=== PATIENT | female | born 2000 | race Caucasian/White ===

== ENCOUNTER 2018-07-24 06:07 | Emergency (ER) | payer MEDICAID ==
[~2018-07-24] VITALS: Ht 160 cm; Wt 50.0 kg
[2018-07-24 06:12] VITALS: Ht 160 cm; Wt 50.0 kg
[2018-07-24] MEDS ORDERED: BENADRYL25 MG (06:13)
[2018-07-24] MEDS ORDERED: PERMETHRIN60 GM TOPICAL (06:29)
[2018-07-24 06:38] VITALS: BP 127/86
== END 2018-07-24 06:39 | disposition home or self-care (01) ==
LOC: D.ER 06:07
DX: L29.9 Pruritus, unspecified (principal)

== ENCOUNTER 2018-10-09 15:42 | Emergency (ER) | payer MEDICAID ==
[~2018-10-09] VITALS: Ht 162.6 cm; Wt 52.2 kg
[~2018-10-09 15:42] MED LIST: BENADRYL25 MG; PERMETHRIN60 GM TOPICAL
[2018-10-09 15:47] VITALS: Ht 162.6 cm; Wt 52.2 kg
[2018-10-09 16:10] LABS: APPEARANCE HAZY (CLEAR); BACTERIA MODERATE /hpf (NONE SEEN); BILIRUBIN NEGATIVE (NEGATIVE); COLOR YELLOW (YELLOW); EPITHELIAL CELLS >50 /hpf (0-5); GLUCOSE NEGATIVE (NEGATIVE); KETONE NEGATIVE (NEGATIVE); NITRITE POSITIVE (NEGATIVE); PROTEIN NEGATIVE (NEGATIVE); RED CELLS - URINE NONE SEEN /hpf (0-5); UROBILINOGEN NORMAL (NORMAL); WHITE CELLS - URINE 0-5 /hpf (0-5)
[2018-10-09 16:23] LABS: BASOPHILS 0.3 % (0-2); EOSINOPHILS 1.4 % (0-7); HEMATOCRIT 36.5 % (36.0-48.0); HEMOGLOBIN 12.9 g/dL (12-16); IMMATURE GRANULOCYTES 0.2 % (0-5); LYMPHOCYTES 23.7 % (15-50); MCH 32.9 pg (26.0-34.0); MCHC 35.3 g/dL (31.0-37.0); MCV 93.1 fL (80.0-100.0); MEAN PLATELET VOLUME 9.9 fL (7.4-10.4); NEUTROPHILS 62.4 % (40-80); PLATELET COUNT 231 10x3/uL (130-400); RBC 3.92 10x6/uL (4.00-5.40); RDW 12.3 % (11.5-14.5); WBC 6.6 10x3/uL (4.8-10.8)
[2018-10-09 16:45] LABS: ALBUMIN 3.9 g/dL (3.4-5.0); ALKALINE PHOSPHATASE 43 U/L (46-116); ALT (SGPT) 23 U/L (10-68); BILIRUBIN - TOTAL 0.37 mg/dL (0.2-1.3); CALC OSMOLALITY 269 mosm/kg (275-300); CALCIUM 8.9 mg/dL (8.5-10.1); CARBON DIOXIDE 25.6 mmol/L (21.0-32.0); CHLORIDE - SERUM 101 mmol/L (98-107); CREATININE - SERUM 0.6 mg/dL (0.6-1.3); GLUCOSE 98 mg/dL (74-106); POTASSIUM - SERUM 3.8 mmol/L (3.5-5.1); PROTEIN - SERUM 7.9 g/dL (6.4-8.2); SODIUM 135 mmol/L (136-145); UREA NITROGEN 13 mg/dL (7-18); eGFR NON AFRICAN AMERICAN > 90 mL/min (90-120)
[2018-10-09 17:06] LABS: HCG - QUANTITATIVE (MATERNAL) 28722 mIU/mL
[2018-10-09] MEDS ORDERED: MACROBID100 MG PO (17:20)
[2018-10-09] MEDS ORDERED: ANTIVERT12.5 MG PO (17:20)
[2018-10-09 18:40] VITALS: BP 103/60
== END 2018-10-09 17:48 | disposition home or self-care (01) ==
LOC: D.ER 15:42
PROVIDERS: Emergency Medicine
DX: R11.0 Nausea (principal); Z32.01 Encounter for pregnancy test, result positive; N39.0 Urinary tract infection, site not specified

== ENCOUNTER 2021-03-31 08:47 | Emergency (ER) | payer MEDICAID ==
[~2021-03-31] VITALS: Ht 162.6 cm; Wt 59.1 kg
[~2021-03-31 08:47] MED LIST changes: +ANTIVERT12.5 MG PO; +MACROBID100 MG PO
[2021-03-31 08:59] VITALS: BP 99/69; Ht 162.6 cm; Wt 59.1 kg
[2021-03-31 09:18] LABS: HCG URINE NEGATIVE (NEGATIVE)
[2021-03-31 09:21] LABS: BACTERIA MANY HPF (NONE SEEN); BILIRUBIN NEGATIVE (NEGATIVE); KETONE NEGATIVE (NEGATIVE); NITRITE NEGATIVE (NEGATIVE); UROBILINOGEN NORMAL mg/dL (< 2); WHITE CELLS - URINE 0-5 HPF (0-4)
== END 2021-03-31 10:19 | disposition left against medical advice (07) ==
LOC: D.ER 08:47
PROVIDERS: Emergency Medicine
DX: R50.9 Fever, unspecified (principal); R53.1 Weakness